=== PATIENT | male | born 1960 | race Hispanic/Latino ===

== ENCOUNTER 2022-06-17 14:24 | Outpatient (CLI) | payer MEDICAID, SELFPAY | END 2022-06-17 14:25 | disposition home or self-care (01) | LOC: CSHWCC 14:24 | PROVIDERS: ATTEND Nurse Practitioner Family | DX: T81.89XD Other complications of procedures, not elsewhere classified, subsequent encounter (principal); S98.211A Complete traumatic amputation of two or more right lesser toes, initial encounter | CPT/HCPCS: 11044; 99203; G0463 ==

== ENCOUNTER 2022-06-24 09:40 | Outpatient (CLI) | payer MEDICAID | END 2022-06-24 09:41 | disposition home or self-care (01) | LOC: CSHWCC 09:40 | PROVIDERS: ATTEND Nurse Practitioner Family | DX: T81.89XD Other complications of procedures, not elsewhere classified, subsequent encounter (principal) | CPT/HCPCS: 99213; G0463 ==